=== PATIENT | male | born 1975 | race African-American/Black ===

== ENCOUNTER 2024-05-27 14:56 | Inpatient (IN) | payer MEDICAID, OTHER ==
[~2024-05-27] VITALS: Ht 177.8 cm; Wt 67.5 kg
[2024-05-27 14:56] VITALS: BP 58/21; PULSE 66; RESP 20; TEMP 101.4; O2SAT 96
[2024-05-27] MEDS: ACETAMINOPHEN 650 MG RECT SUPP PR ONE (15:00)
[2024-05-27] MEDS: DOPamine 1600MCG/ML D5W 250 ML IV ONE (15:32)
[2024-05-27] MEDS ORDERED: NOREPINEPHRINE 8 MG/250ML KIT 250 ML IV SCH (15:45)
[2024-05-27 16:18] VITALS: BP 60/15; PULSE 88; RESP 20; O2SAT 100
[2024-05-27] MEDS: PHENYLEPHRINE INJ 80 MG in SODIUM CHL 0.9% 242 ML IV SCH (16:22)
[2024-05-27] MEDS: NOREPINEPHRINE 8 MG/250ML KIT 250 ML IV ONE (16:23)
[2024-05-27 16:27] LABS: Basophils # (auto) 0 10 ^3/uL (0-0.2); Basophils % (auto) 0.5 % (0.0-2.0); Eosinophils # (auto) 0 10 ^3/uL (0-0.8); Eosinophils % (auto) 0.3 % (0.0-7.0); Lymphocytes # (auto) 0.6 10 ^3/uL (0.4-5.4); Lymphocytes % (auto) 6.6 % (10.0-50.0); Mean Corpuscular Hemoglobin 30.7 pg (28.0-32.0); Mean Corpuscular Hgb Conc. 31.7 g/dL (32.0-36.0); Mean Corpuscular Volume 96.9 fL (80.0-100.0); Monocytes # (auto) 0.1 10 ^3/uL (0-1.3); Monocytes % (auto) 1.4 % (0.0-12.0); Neutrophils # (auto) 7.8 10 ^3/uL (1.6-8.6); Neutrophils % (auto) 91.2 % (37.0-80.0); Nucleated Red Blood Cells % 0.8 %; Red Blood Cells 4.23 10^6/uL (4.5-5.90); Red Cell Distribution Width 13.8 % (11.8-14.3); White Blood Cell 8.5 10^3/uL (4.4-10.8)
[2024-05-27 16:28] VITALS: PULSE 86; RESP 20; O2SAT 100
[2024-05-27 16:43] LABS: INR 1.29 (0.9-1.15); Partial Thromboplastin Time 61.8 SEC (24.5-34.5); Prothrombin Time 13.4 sec (9.3-11.8)
[2024-05-27 16:46] LABS: Alanine Aminotransferase 779 U/L (7-40); Alkaline Phosphatase 108 U/L (46-116); Anion Gap 33.00001 (5-15); Calcium 8.8 mg/dL (8.5-10.1); Chloride 91 mmol/L (98-107); Sodium 134 mmol/L (136-145)
[2024-05-27 16:47] LABS: Bilirubin, Total 0.9 mg/dL (0.2-1.0); Total Protein 4.8 g/dL (5.7-8.2)
[2024-05-27] MEDS: SODIUM BICARB 8.4% 50Meq/50ml SYR INJ ONE (16:49)
[2024-05-27] MEDS: EPINEPHrine HCL 1 MG/10 ML SYRG ONE (16:50)
[2024-05-27 16:54] LABS: BUN/Creatinine Ratio 13.3 (10.0-20.0)
[2024-05-27 16:56] LABS: Blood Urea Nitrogen 156 mg/dL (9-23); Carbon Dioxide < 10 mmol/L (20-30); Glucose 1028 mg/dL (74-106); Potassium 9.6 mmol/L (3.5-5.1)
[2024-05-27 16:58] LABS: Aspartate Aminotransferase 1729 U/L (13-40)
[2024-05-27] MEDS: SODIUM CHLORIDE 0.9% 1,000 ML IV SCH ×3 (17:00→22:45)
[2024-05-27] MEDS ORDERED: SODIUM BICARB 50mEq/50ml Vial 50 ML in SOD CHL 0.45% 1,000 ML IV ONE (17:00)
[2024-05-27] MEDS: SOD CHL 0.45% IV ONE (17:11)
[2024-05-27] MEDS: SODIUM BICARB IV ONE (17:11)
[2024-05-27] MEDS ORDERED: DEXTROSE (50%) 50ML SYRG IV PRN ×2 (17:15→18:45)
[2024-05-27] MEDS: SODIUM ZIRCONIUM CYCL 10 GM PAK PO ONE ×3 (17:25→20:35)
[2024-05-27] MEDS: SODIUM BICARB 8.4% 50Meq/50ml SYR Vial IV ONE ×2 (17:25→20:51)
[2024-05-27] MEDS: EPINEPHrine HCL INJECTION 16 MG in D5W 5% 234 ML IV SCH (17:32)
[2024-05-27 17:35] LABS: Base Excess -25.8 mmol/L (-2.0-2.0)
[2024-05-27] MEDS: INSULIN DRIP 100 UNIT/100ML 100 ML IV SCH (17:47)
[2024-05-27] MEDS: ACCU-CHEK COMFORT CURVE STRIP VI SCH ×2 (18:09→19:42)
[2024-05-27 18:10] VITALS: BP 51/27; PULSE 95; RESP 20; O2SAT 92
[2024-05-27] MEDS: VASOPRESSIN 20 UNITS in SODIUM CHL 0.9% 99 ML IV SCH (18:32)
[2024-05-27] MEDS: SODIUM BICARB 50mEq/50ml Vial 150 ML in SOD CHL 0.45% 1,000 ML IV ONE (18:33)
[2024-05-27] MEDS ORDERED: SODIUM CHLORIDE 0.9% 1,000 ML IV SCH ×3 (18:45→23:00)
[2024-05-27] MEDS ORDERED: MORPHINE SULFATE INJ 2 MG/ml SYRG IV PRN (18:45)
[2024-05-27] MEDS ORDERED: VANCOMYCIN PER PHARMACY 0 MG IV SCH (18:45)
[2024-05-27] MEDS ORDERED: NITROGLYCERIN 0.4 MG SL TAB SL PRN (18:45)
[2024-05-27] MEDS ORDERED: ONDANSETRON HCL 4 MG/2 ML VIAL IV PRN (18:45)
[2024-05-27] MEDS ORDERED: ACETAMINOPHEN 325 MG TAB PO PRN (18:45)
[2024-05-27 19:29] LABS: Chloride 95 mmol/L (98-107)
[2024-05-27 19:30] LABS: Anion Gap 22.00001 (5-15); Calcium 8.3 mg/dL (8.7-10.4)
[2024-05-27 19:35] LABS: BUN/Creatinine Ratio 12.2 (10.0-20.0)
[2024-05-27] MEDS: CEFEPIME 1GM/ 50ML 50 ML IV ONE (19:36)
[2024-05-27] MEDS: HYDROCORTISONE SOD SUCC 100 MG/2ML INJ VIAL IV SCH (19:36)
[2024-05-27 19:47] LABS: Phosphorus 35.3 mg/dL (2.4-5.1)
[2024-05-27 19:50] LABS: Sodium 127 mmol/L (136-145)
[2024-05-27] MEDS: NOREPINEPHRINE BITARTRATE 32 MG in SODIUM CHL 0.9% 218 ML IV SCH (19:50)
[2024-05-27 19:56] LABS: Blood Urea Nitrogen 133 mg/dL (9-23); Carbon Dioxide < 10 mmol/L (20-30); Glucose 769 mg/dL (74-106); Magnesium 4.9 mg/dL (1.6-2.6); Potassium > 10.0 mmol/L (3.5-5.1)
[2024-05-27] MEDS: InsuLIN REG 1unit/0.01ml Soln (100units/ml) IV ONE ×2 (20:07→20:33)
[2024-05-27] MEDS: SODIUM BICARB 50mEq/50ml Vial 150 ML in SOD CHL 0.45% 1,000 ML IV SCH (20:09)
[2024-05-27] MEDS: ALBUTEROL SULF 2.5 MG/0.5ML(0.5%) NEB SOLN NEB ONE (20:15)
[2024-05-27] MEDS ORDERED: SODIUM BICARB 8.4% 50Meq/50ml SYR INJ IV ONE (20:15)
[2024-05-27] MEDS: CALCIUM GLUC 1,000mg/50ml-NS 50 ML IV ONE (20:23)
[2024-05-27] MEDS: VANCOMYCIN 1GM/200ML 200 ML IV ONE (20:23)
[2024-05-27] MEDS: DEXTROSE (50%) 50ML SYRG IV ONE (20:24)
[2024-05-27 20:48] VITALS: BP 42/16; PULSE 85; RESP 20; O2SAT 100
[2024-05-27 21:10] LABS: Lactic Acid w/Reflex 12.7 mmol/L (0.4-2.0)
[2024-05-27 22:00] VITALS: BP 53/29; PULSE 78; RESP 20; O2SAT 100
[2024-05-27] MEDS: FUROSEMIDE 40 MG/4 ML VIAL IV ONE (22:23)
[2024-05-27] MEDS: ALBUMIN 5% 250 ML IV ONE (22:26)
[2024-05-27 22:39] LABS: Hematocrit 27.1 % (41.0-53.0); Hemoglobin 8.7 g/dL (13.5-17.5)
[2024-05-27 23:12] LABS: Potassium 4.9 mmol/L (3.5-5.1)
[2024-05-27 23:13] LABS: Anion Gap 29 (5-15); Calcium 6.3 mg/dL (8.7-10.4); Carbon Dioxide 11 mmol/L (20-30)
[2024-05-27 23:25] LABS: Chloride 111 mmol/L (98-107); Sodium 151 mmol/L (136-145)
[2024-05-27 23:27] LABS: Blood Urea Nitrogen 123 mg/dL (9-23); Glucose 555 mg/dL (74-106)
[2024-05-28] VITALS (70 sets, daily range): BP systolic 5–113; BP diastolic 1–68; PULSE 53–134; RESP 0–31; TEMP 90.3–95.5; O2SAT 40–100
[2024-05-28] MEDS: ALBUMIN 5% 250 ML IV ONE (00:25)
[2024-05-28 00:41] LABS: Chloride 111 mmol/L (98-107); Potassium 5.1 mmol/L (3.5-5.1); Sodium 151 mmol/L (136-145)
[2024-05-28 00:42] LABS: Anion Gap 30 (5-15); Calcium 6.3 mg/dL (8.7-10.4); Carbon Dioxide 10 mmol/L (20-30)
[2024-05-28] MEDS ORDERED: SODIUM CHLORIDE 0.9% 1,000 ML IV SCH (00:45)
[2024-05-28 00:47] LABS: BUN/Creatinine Ratio 11.1 (10.0-20.0)
[2024-05-28 00:56] LABS: Blood Urea Nitrogen 114 mg/dL (9-23); Glucose 502 mg/dL (74-106)
[2024-05-28] MEDS: DOPamine 1600MCG/ML D5W 250 ML IV ONE (02:29)
[2024-05-28] MEDS: SODIUM BICARB 50mEq/50ml Vial 150 ML in D5W 5% 1,000 ML IV SCH (02:30)
[2024-05-28] MEDS: INSULIN DRIP 100 UNIT/100ML 100 ML IV SCH ×2 (05:40→11:15)
[2024-05-28] MEDS: PHENYLEPHRINE IV 250 ML IV ONE (06:30)
[2024-05-28 07:27] LABS: Hematocrit 31.9 % (41.0-53.0); Hemoglobin 10.1 g/dL (13.5-17.5); Mean Corpuscular Hemoglobin 29.8 pg (28.0-32.0); Mean Corpuscular Hgb Conc. 31.5 g/dL (32.0-36.0); Mean Corpuscular Volume 94.5 fL (80.0-100.0); Red Blood Cells 3.37 10^6/uL (4.5-5.90)
[2024-05-28 07:32] LABS: Basophils % (manual) 0 (0.0-2.0); Blast Cells 0; Eosinophils % (manual) 0 (0-7); Metamyelocytes % 0; Promyelocytes % 0; Reactive Lymphocytes 0
[2024-05-28 07:43] LABS: Alkaline Phosphatase 77 U/L (46-116); Anion Gap 30.00001 (5-15); BUN/Creatinine Ratio 10.3 (10.0-20.0); Calcium 6.4 mg/dL (8.5-10.1); Chloride 108 mmol/L (98-107); Sodium 148 mmol/L (136-145); Triglycerides 180 mg/dL (< 150)
[2024-05-28 07:44] LABS: LDL Cholesterol 54 mg/dL (< 100)
[2024-05-28 07:45] LABS: Bilirubin, Total 1.5 mg/dL (0.2-1.0); Cholesterol 82 mg/dL (< 200); HDL Cholesterol 7 mg/dL (40-59); Total Protein 3.1 g/dL (5.7-8.2)
[2024-05-28 07:55] LABS: Blood Urea Nitrogen 104 mg/dL (9-23); Carbon Dioxide < 10 mmol/L (20-30); Glucose 403 mg/dL (74-106)
[2024-05-28 07:56] LABS: Alanine Aminotransferase 1545 U/L (7-40)
[2024-05-28 07:57] LABS: Aspartate Aminotransferase 3984 U/L (13-40)
[2024-05-28 08:18] LABS: Band Neutrophils % (manual) 40; Lymphocytes % (manual) 23 (10.0-50.0); Monocytes % (manual) 2 (0-12); Myelocytes % 1; Platelet Estimate Decreased
[2024-05-28] MEDS: ALBUTEROL SULF 2.5 MG/0.5ML(0.5%) NEB SOLN NEB ONE ×2 (08:29→14:27)
[2024-05-28] MEDS: CALCIUM GLUC 1,000mg/50ml-NS 50 ML IV ONE ×2 (08:47→15:24)
[2024-05-28] MEDS: DOPamine 1600MCG/ML D5W 250 ML IV SCH (08:49)
[2024-05-28] MEDS: SODIUM BICARB 8.4% 50Meq/50ml SYR INJ IV ONE ×2 (09:02→15:27)
[2024-05-28] MEDS: DEXTROSE (50%) 50ML SYRG IV ONE ×2 (09:03→15:24)
[2024-05-28] MEDS: SODIUM ZIRCONIUM CYCL 10 GM PAK PO ONE ×2 (09:04→15:41)
[2024-05-28] MEDS: InsuLIN REG 1unit/0.01ml Soln (100units/ml) IV ONE ×2 (09:09→15:23)
[2024-05-28] MEDS: SODIUM BICARB 8.4% 50Meq/50ml SYR INJ ONE ×3 (10:59→17:25)
[2024-05-28] MEDS: SODIUM BICARB 8.4% 50Meq/50ml SYR Vial IV ONE ×3 (11:00→11:34)
[2024-05-28] MEDS ORDERED: DEXTROSE (50%) 50ML SYRG IV PRN (11:15)
[2024-05-28] MEDS: SODIUM BICARB 50mEq/50ml Vial 150 ML in SOD CHL 0.45% 1,000 ML IV SCH (11:30)
[2024-05-28 11:35] LABS: Base Excess -19.8 mmol/L (-2.0-2.0)
[2024-05-28] MEDS: ACCU-CHEK COMFORT CURVE STRIP VI SCH (12:00)
[2024-05-28 12:44] LABS: Basophils % (auto) 0.6 % (0.0-2.0); Eosinophils # (auto) 0 10 ^3/uL (0-0.8); Mean Corpuscular Hemoglobin 30.2 pg (28.0-32.0); Monocytes % (auto) 4.3 % (0.0-12.0)
[2024-05-28 12:46] LABS: Basophils # (auto) 0 10 ^3/uL (0-0.2); Eosinophils % (auto) 0.2 % (0.0-7.0); Hematocrit 22.4 % (41.0-53.0); Hemoglobin 7.3 g/dL (13.5-17.5); Lymphocytes # (auto) 0.9 10 ^3/uL (0.4-5.4); Lymphocytes % (auto) 11.8 % (10.0-50.0); Mean Corpuscular Hgb Conc. 32.8 g/dL (32.0-36.0); Monocytes # (auto) 0.3 10 ^3/uL (0-1.3); Neutrophils # (auto) 6.3 10 ^3/uL (1.6-8.6); Neutrophils % (auto) 83.1 % (37.0-80.0); Nucleated Red Blood Cells % 0.5 %; Red Blood Cells 2.43 10^6/uL (4.5-5.90); Red Cell Distribution Width 14.4 % (11.8-14.3); White Blood Cell 7.6 10^3/uL (4.4-10.8)
[2024-05-28 13:04] LABS: Platelet Estimate Decreased
[2024-05-28 13:06] LABS: Albumin 1.3 g/dL (3.2-4.8); Alkaline Phosphatase 93 U/L (46-116); Anion Gap 34 (5-15); Bilirubin, Total 1.3 mg/dL (0.2-1.0); Carbon Dioxide 18 mmol/L (20-30); Chloride 107 mmol/L (98-107); Glucose 315 mg/dL (74-106)
[2024-05-28 13:17] LABS: Aspartate Aminotransferase 4908 U/L (13-40)
[2024-05-28 13:25] LABS: Alanine Aminotransferase 2018 U/L (7-40); Sodium 159 mmol/L (136-145); Total Protein < 2.0 g/dL (5.7-8.2)
[2024-05-28 13:30] LABS: Blood Urea Nitrogen 113 mg/dL (9-23); Calcium 5.9 mg/dL (8.5-10.1); Potassium 7.5 mmol/L (3.5-5.1)
[2024-05-28] MEDS ORDERED: SODIUM ZIRCONIUM CYCL 10 GM PAK PO SCH ×2 (14:00→22:00)
[2024-05-28] MEDS ORDERED: InsuLIN REG 1unit/0.01ml Soln (100units/ml) IV ONE (14:00)
[2024-05-28] MEDS ORDERED: CALCIUM GLUC 1,000mg/50ml-NS 50 ML IV ONE (14:00)
[2024-05-28] MEDS ORDERED: DEXTROSE (50%) 50ML SYRG IV ONE (14:00)
[2024-05-28 14:09] LABS: Base Excess -13.8 mmol/L (-2.0-2.0)
[2024-05-28 14:30] LABS: Hematocrit 15.6 % (41.0-53.0); Lymphocytes % (auto) 11.5 % (10.0-50.0); Monocytes # (auto) 0.8 10 ^3/uL (0-1.3)
[2024-05-28 14:32] LABS: Basophils # (auto) 0.1 10 ^3/uL (0-0.2); Basophils % (auto) 0.9 % (0.0-2.0); Eosinophils # (auto) 0 10 ^3/uL (0-0.8); Eosinophils % (auto) 0.3 % (0.0-7.0); Lymphocytes # (auto) 1.2 10 ^3/uL (0.4-5.4); Mean Corpuscular Volume 93.8 fL (80.0-100.0); Monocytes % (auto) 8.2 % (0.0-12.0); Neutrophils % (auto) 79.1 % (37.0-80.0); Nucleated Red Blood Cells % 0.3 %; Red Blood Cells 1.66 10^6/uL (4.5-5.90); Red Cell Distribution Width 14.6 % (11.8-14.3); White Blood Cell 10.1 10^3/uL (4.4-10.8)
[2024-05-28] MEDS: DOPamine 3200MCG/ML 250 ML IV SCH (14:36)
[2024-05-28 14:47] LABS: Platelet Estimate Decreased
[2024-05-28 14:50] LABS: Albumin < 1.0 g/dL (3.2-4.8); Alkaline Phosphatase 83 U/L (46-116); Anion Gap 38 (5-15); BUN/Creatinine Ratio 10.8 (10.0-20.0); Carbon Dioxide 15 mmol/L (20-30); Chloride 110 mmol/L (98-107)
[2024-05-28 15:00] LABS: Phosphorus 26.4 mg/dL (2.4-5.1)
[2024-05-28 15:04] LABS: Aspartate Aminotransferase > 6000 U/L (13-40); Glucose 212 mg/dL (74-106)
[2024-05-28 15:05] LABS: Alanine Aminotransferase 3388 U/L (7-40); Magnesium 3.6 mg/dL (1.6-2.6); Total Protein < 2.0 g/dL (5.7-8.2)
[2024-05-28 15:07] LABS: Blood Urea Nitrogen 94 mg/dL (9-23); Calcium 5.4 mg/dL (8.5-10.1); Potassium 7.9 mmol/L (3.5-5.1); Sodium 163 mmol/L (136-145)
[2024-05-28 15:20] LABS: Prothrombin Time 14.2 sec (9.3-11.8)
[2024-05-28 15:21] LABS: Partial Thromboplastin Time 31.3 SEC (24.5-34.5)
[2024-05-28 15:23] LABS: INR 1.37 (0.9-1.15)
[2024-05-28 19:01] LABS: Basophils % (manual) 0 (0.0-2.0); Blast Cells 0; Hematocrit 29.8 % (41.0-53.0); Hemoglobin 9.4 g/dL (13.5-17.5); Mean Corpuscular Hemoglobin 30.8 pg (28.0-32.0); Mean Corpuscular Hgb Conc. 31.6 g/dL (32.0-36.0); Mean Corpuscular Volume 97.4 fL (80.0-100.0); Metamyelocytes % 0; Myelocytes % 0; Promyelocytes % 0; Reactive Lymphocytes 0; Red Blood Cells 3.06 10^6/uL (4.5-5.90); White Blood Cell 5.8 10^3/uL (4.4-10.8)
[2024-05-28 19:11] LABS: Albumin < 1.0 g/dL (3.2-4.8); Alkaline Phosphatase 77 U/L (46-116); Anion Gap 39 (5-15); BUN/Creatinine Ratio 12.5 (10.0-20.0); Bilirubin, Total 0.7 mg/dL (0.2-1.0); Calcium 6.7 mg/dL (8.5-10.1); Carbon Dioxide 13 mmol/L (20-30); Chloride 108 mmol/L (98-107); Glucose 243 mg/dL (74-106); Sodium 160 mmol/L (136-145)
[2024-05-28] MEDS ORDERED: LORazepam 2MG/ML-1ML VIAL IV PRN (19:15)
[2024-05-28] MEDS ORDERED: MORPHINE SULFATE INJ 2 MG/ml SYRG IV PRN (19:15)
[2024-05-28 19:47] LABS: Band Neutrophils % (manual) 10; Eosinophils % (manual) 2 (0-7); Lymphocytes % (manual) 20 (10.0-50.0); Monocytes % (manual) 14 (0-12); Platelet Estimate Decreased
[2024-05-28 19:52] LABS: Alanine Aminotransferase 3586 U/L (7-40); Aspartate Aminotransferase > 6000 U/L (13-40); Total Protein < 2.0 g/dL (5.7-8.2)
[2024-05-28] MEDS ORDERED: CEFEPIME 1GM/ 50ML 50 ML IV SCH (20:00)
[2024-05-28 20:25] LABS: Blood Urea Nitrogen 101 mg/dL (9-23); Potassium 9.6 mmol/L (3.5-5.1)
[2024-05-28] MEDS ORDERED: CALCIUM CHLOR(10%) 100MG/ML 10ML SYRINGE IV ONE (20:27)
[2024-05-29 09:00] LABS: Hepatitis B Surface Antigen Negative (Negative)
[2024-05-29 09:21] LABS: Hepatitis A Ab IgM Negative; Hepatitis B Core IgM Negative
[2024-05-29 09:22] LABS: Hepatitis C Antibody Negative (Negative)
== END 2024-05-28 20:28 | DRG 720 ==
LOC: ER 14:56 → TELE 18:55 → EDBD 18:55 → ICU WEST 05-28 09:07 → UNDODISIN 05-28 23:59
PROVIDERS: ADMIT Internal Medicine Pulmonary Disease; ATTEND Internal Medicine Pulmonary Disease
PROC: 5A1945Z Respiratory Ventilation, 24-96 Consecutive Hours (ICD-10-PCS; principal; 2024-05-27)
PROC: 0BH18EZ Insertion of Endotracheal Airway into Trachea, Via Natural or Artificial Opening Endoscopic (ICD-10-PCS; 2024-05-27)
PROC: 5A12012 Performance of Cardiac Output, Single, Manual (ICD-10-PCS; 2024-05-27)
PROC: 5A2204Z Restoration of Cardiac Rhythm, Single (ICD-10-PCS; 2024-05-27)
PROC: 30233N1 Transfusion of Nonautologous Red Blood Cells into Peripheral Vein, Percutaneous Approach (ICD-10-PCS; 2024-05-28)
PROC: 5A12012 Performance of Cardiac Output, Single, Manual (ICD-10-PCS; 2024-05-28)
DX: A41.9 Sepsis, unspecified organism (principal); I46.9 Cardiac arrest, cause unspecified; G93.6 Cerebral edema; J96.01 Acute respiratory failure with hypoxia; E11.11 Type 2 diabetes mellitus with ketoacidosis with coma; K72.01 Acute and subacute hepatic failure with coma; G93.41 Metabolic encephalopathy; E83.41 Hypermagnesemia; D68.9 Coagulation defect, unspecified; R65.21 Severe sepsis with septic shock; R57.0 Cardiogenic shock; I21.29 ST elevation (STEMI) myocardial infarction involving other sites; N17.9 Acute kidney failure, unspecified; E87.1 Hypo-osmolality and hyponatremia; D69.6 Thrombocytopenia, unspecified; R57.1 Hypovolemic shock; E87.5 Hyperkalemia; E86.0 Dehydration; G93.1 Anoxic brain damage, not elsewhere classified; Z59.00 Homelessness unspecified
CPT/HCPCS: 31500; 36415; 36556; 36600; 70450; 71045; 76700; 80048; 80053; 80061; 80074; 80202; 80320; 82010; 82805; 82962; 83605; 83735; 83880; 83930; 84100; 84484; 85007; 85014; 85018; 85025; 85027; 85610; 85730; 86850; 86900; 86901; 86920; 87040; 87070; 87205; 92950; 93306; 94002; 94003; 94640; 94644; 99291; G0378; J0171; J1265; J1815; J7060